=== PATIENT | male | born 1960 | race Caucasian/White ===

== ENCOUNTER → 2018-05-21 12:09 | Outpatient (CLI) | payer OTHER, SELFPAY ==
[2018-05-21 14:53] LABS: ALB/GLOB Ratio 1.1 RATIO (0.9-2.4); AST(SGOT) 16 U/L (15-37); Alanine Aminotransfer ALT/SGPT 30 U/L (16-61); Alkaline Phosphatase 82 U/L (45-117); Anion Gap 9 (5-15); BUN 16 mg/dL (7-18); BUN/Creat Ratio 21.4 RATIO (10-20); CPK Total, Creatine Kinase 96 U/L (39-308); Calcium,Total 9.1 mg/dL (8.5-10.1); Chloride 102 mmol/L (98-107); Cholesterol 130 mg/dL (200); Creatinine, Serum 0.75 mg/dL (0.70-1.30); EST Glomerular Filtration Rate 114 mL/min (>60); Est Glom Filt Rate - Afr Amer 138 mL/min (>60); Ferritin 146 ng/mL (26-388); Globulin 3.7 g/dL (2.2-4.2); Glucose 104 mg/dL (74-106); High Density Lipoprotein 57 mg/dL; Protein, Total 7.7 g/dL (6.4-8.2); Sodium Level 140 mmol/L (136-145); Triglycerides 119 mg/dL; Very Low Density Lipoprotein 24 mg/dL (5-40)
== END ==
PROVIDERS: Family Medicine; Family Provider Family Medicine; PCP Family Medicine; Visit Provider Family Medicine
DX: R25.2 Cramp and spasm (principal); E78.5 Hyperlipidemia, unspecified
CPT/HCPCS: 36415; 80053; 80061; 82550; 82728; 83735

== ENCOUNTER → 2018-07-11 07:26 | Outpatient (CLI) | payer OTHER, SELFPAY ==
[2018-07-11 09:04] LABS: AST(SGOT) 20 U/L (15-37); Alanine Aminotransfer ALT/SGPT 34 U/L (16-61); Albumin, Serum 3.8 g/dL (3.2-5.0); Alkaline Phosphatase 105 U/L (45-117); Bilirubin, Direct 0.17 mg/dL (0.00-0.30); Cholesterol 111 mg/dL (200); Globulin 3.6 g/dL (2.2-4.2); High Density Lipoprotein 50 mg/dL; Protein, Total 7.4 g/dL (6.4-8.2); Triglycerides 53 mg/dL; Very Low Density Lipoprotein 11 mg/dL (5-40)
== END ==
PROVIDERS: Physician Assistant Medical; Family Provider Family Medicine; PCP Family Medicine; Referring Provider Internal Medicine Cardiovascular Disease; Visit Provider Internal Medicine Cardiovascular Disease
DX: E78.5 Hyperlipidemia, unspecified (principal); Z79.899 Other long term (current) drug therapy
CPT/HCPCS: 36415; 80061; 80076

== ENCOUNTER → 2019-07-15 07:05 | Outpatient (CLI) | payer OTHER, SELFPAY ==
[2018-07-17 09:36] VITALS: BMI 25.0
[2019-07-15 08:32] LABS: AST(SGOT) 18 U/L (15-37); Alanine Aminotransfer ALT/SGPT 33 U/L (16-61); Albumin, Serum 3.8 g/dL (3.2-5.0); Alkaline Phosphatase 87 U/L (45-117); Bilirubin, Direct 0.19 mg/dL (0.00-0.30); Cholesterol 113 mg/dL (200); Globulin 3.4 g/dL (2.2-4.2); High Density Lipoprotein 58 mg/dL; Protein, Total 7.2 g/dL (6.4-8.2); Triglycerides 52 mg/dL; Very Low Density Lipoprotein 10 mg/dL (5-40)
== END ==
PROVIDERS: Family Provider Family Medicine; PCP Family Medicine; Referring Provider Physician Assistant Medical; Visit Provider Physician Assistant Medical
DX: E78.00 Pure hypercholesterolemia, unspecified (principal)
CPT/HCPCS: 36415; 80061; 80076

== ENCOUNTER → 2019-07-16 10:26 | Outpatient (CLI) | payer OTHER, SELFPAY ==
[2019-07-16 08:38] VITALS: BMI 24.7
[2019-07-16 11:42] LABS: Absolute Lymphocyte Count 1.34 X10^3/uL (0.83-4.51); Absolute Neutrophil Count 3.3 X10^3/uL (2.0-7.7); Basophil# 0.02 X10^3/uL; Basophil% 0.4 % (0-1); Eosinophil# 0.06 X10^3/uL; Eosinophils% 1.2 % (0-5); Hematocrit 44.3 % (40-54); Hemoglobin 14.4 g/dL (13.0-16.5); Lymphocyte # 1.34 X10^3/ul (4.0); Lymphocyte % 26.7 % (19-41); Mean Corp Hgb Conc 32.5 g/dL (32-36); Mean Corpuscular Hgb 29.3 pg (27.0-32.0); Mean Corpuscular Volume 90.2 fL (80-94); Monocyte# 0.32 X10^3/uL; Monocyte% 6.4 % (0-10); NRBC Flagged by Analyzer 0 % (0-5); Neutrophil # 3.27 X10^3/uL (2.7-7.7); Neutrophil % 65.1 % (47-70); Platelet Count 228 K/mm3 (150-450); RBC Distribution Width CV 12.7 % (11.6-14.6); RBC Distribution Width SD 41.8 fl (35.1-43.9); Red Blood Count 4.91 M/mm3 (4.6-6.2)
[2019-07-16 12:14] LABS: Anion Gap 5 (5-15); BUN 16 mg/dL (7-18); BUN/Creat Ratio 21.9 RATIO (10-20); Calcium,Total 9.1 mg/dL (8.5-10.1); Chloride 105 mmol/L (98-107); Creatinine, Serum 0.73 mg/dL (0.70-1.30); EST Glomerular Filtration Rate 116 mL/min (>60); Est Glom Filt Rate - Afr Amer 141 mL/min (>60); Glucose 114 mg/dL (74-106); PSA,Total - Annual Screen 1.15 ng/mL (0.00-4.00); Potassium 4.3 mmol/L (3.5-5.1); Sodium Level 142 mmol/L (136-145)
== END ==
PROVIDERS: Family Provider Family Medicine; PCP Family Medicine; Referring Provider Internal Medicine Cardiovascular Disease; Visit Provider Internal Medicine Cardiovascular Disease
DX: E78.5 Hyperlipidemia, unspecified (principal); Z95.5 Presence of coronary angioplasty implant and graft
CPT/HCPCS: 36415; 80048; 83036; 84153; 85025; G0103

== ENCOUNTER → 2019-08-20 12:06 | Outpatient (CLI) | payer OTHER, SELFPAY ==
[2019-07-16 08:38] VITALS: BMI 24.7
[2019-08-20 14:59] LABS: Microalbumin,Random Urine 5.1 mg/L (NO RANGE EST.); Microalbumin:Creatinine Ratio 7.3 mg/g CRE (<30 mg/g CRE)
== END ==
PROVIDERS: Family Provider Family Medicine; PCP Family Medicine; Referring Provider Family Medicine; Visit Provider Family Medicine
DX: E11.9 Type 2 diabetes mellitus without complications (principal)
CPT/HCPCS: 82043; 82570

== ENCOUNTER → 2019-11-24 08:10 | Outpatient (CLI) | payer OTHER, SELFPAY ==
[2019-07-16 08:38] VITALS: BMI 24.7
[2019-11-24 10:19] LABS: Absolute Lymphocyte Count 1.53 X10^3/uL (0.83-4.51); Absolute Neutrophil Count 2.3 X10^3/uL (2.0-7.7); Basophil# 0.02 X10^3/uL; Basophil% 0.5 % (0-1); Eosinophil# 0.22 X10^3/uL; Hematocrit 43.7 % (40-54); Hemoglobin 14.2 g/dL (13.0-16.5); Lymphocyte # 1.53 X10^3/ul (4.0); Lymphocyte % 34.7 % (19-41); Mean Corp Hgb Conc 32.5 g/dL (32-36); Mean Corpuscular Hgb 29.6 pg (27.0-32.0); Mean Platelet Vol. 10.2 fl (6.2-12.0); Monocyte# 0.33 X10^3/uL; Monocyte% 7.5 % (0-10); NRBC Flagged by Analyzer 0 % (0-5); Neutrophil % 52.1 % (47-70); Platelet Count 219 K/mm3 (150-450); RBC Distribution Width CV 12.8 % (11.6-14.6); RBC Distribution Width SD 42.9 fl (35.1-43.9); White Blood Count 4.4 K/mm3 (4.4-11.0)
[2019-11-24 10:40] LABS: Microalbumin,Random Urine 10.6 mg/L (NO RANGE EST.); Microalbumin:Creatinine Ratio 6.5 mg/g CRE (<30 mg/g CRE)
[2019-11-24 10:42] LABS: ALB/GLOB Ratio 1.1 RATIO (0.9-2.4); AST(SGOT) 19 U/L (15-37); Alanine Aminotransfer ALT/SGPT 41 U/L (16-61); Albumin, Serum 3.8 g/dL (3.2-5.0); Alkaline Phosphatase 91 U/L (45-117); Anion Gap 5 (5-15); BUN 15 mg/dL (7-18); BUN/Creat Ratio 20.9 RATIO (10-20); Calcium,Total 8.9 mg/dL (8.5-10.1); Chloride 105 mmol/L (98-107); Cholesterol 122 mg/dL (200); Creatinine, Serum 0.72 mg/dL (0.70-1.30); EST Glomerular Filtration Rate 118 mL/min (>60); Est Glom Filt Rate - Afr Amer 143 mL/min (>60); Globulin 3.6 g/dL (2.2-4.2); Glucose 130 mg/dL (74-106); High Density Lipoprotein 59 mg/dL; Potassium 4.1 mmol/L (3.5-5.1); Protein, Total 7.4 g/dL (6.4-8.2); Sodium Level 139 mmol/L (136-145); Triglycerides 39 mg/dL; Very Low Density Lipoprotein 8 mg/dL (5-40)
[2019-11-24 17:43] LABS: Hemoglobin A1c 6.6 % (4.2-6.3)
== END ==
PROVIDERS: PCP Family Medicine; Referring Provider Family Medicine; Visit Provider Family Medicine
DX: I25.10 Atherosclerotic heart disease of native coronary artery without angina pectoris (principal); E11.9 Type 2 diabetes mellitus without complications; E78.5 Hyperlipidemia, unspecified
CPT/HCPCS: 36415; 80053; 80061; 82043; 82570; 83036; 84443; 85025

== ENCOUNTER → 2020-03-21 08:04 | Outpatient (CLI) | payer OTHER, SELFPAY ==
[2019-07-16 08:38] VITALS: BMI 24.7
[2020-03-21 10:42] LABS: Hemoglobin A1c 6.8 % (3.8-5.6)
[2020-03-21 10:47] LABS: ALB/GLOB Ratio 1.1 RATIO (0.9-2.4); AST(SGOT) 16 U/L (15-37); Alanine Aminotransfer ALT/SGPT 29 U/L (16-61); Albumin, Serum 3.7 g/dL (3.2-5.0); Alkaline Phosphatase 78 U/L (45-117); Anion Gap 5 (5-15); BUN 17 mg/dL (7-18); BUN/Creat Ratio 23.5 RATIO (10-20); Calcium,Total 8.7 mg/dL (8.5-10.1); Chloride 107 mmol/L (98-107); Cholesterol 114 mg/dL (200); Creatinine, Serum 0.72 mg/dL (0.70-1.30); EST Glomerular Filtration Rate 117 mL/min (>60); Est Glom Filt Rate - Afr Amer 142 mL/min (>60); Globulin 3.3 g/dL (2.2-4.2); Glucose 132 mg/dL (74-106); High Density Lipoprotein 56 mg/dL; Sodium Level 140 mmol/L (136-145); Triglycerides 34 mg/dL; Very Low Density Lipoprotein 7 mg/dL (5-40)
== END ==
PROVIDERS: PCP Family Medicine; Referring Provider Family Medicine; Visit Provider Family Medicine
DX: E78.5 Hyperlipidemia, unspecified (principal); E11.9 Type 2 diabetes mellitus without complications
CPT/HCPCS: 36415; 80053; 80061; 83036

== ENCOUNTER → 2020-06-07 10:54 | Outpatient (CLI) | payer OTHER, SELFPAY ==
[2019-07-16 08:38] VITALS: BMI 24.7
--- NOTE | 2020-06-07 10:56 | RAD_ITS ---
STUDY: X-RAY - LEFT FOOT CLINICAL: Male, 59 years old. chronic left heel pain TECHNIQUE: 3 view(s) of the foot. COMPARISON: None. FINDINGS: There is a tiny plantar aspect calcaneal spur. Normal visualized subtalar, talonavicular, calcaneocuboid, tarsal and tarsometatarsal articulations. Normal metatarsi. Normal metatarsophalangeal joint of the great toe. Normal tibial and fibular sesamoid bones. Normal interphalangeal joint of the great toe. Normal phalanges of the great toe. Normal second through fifth metatarsophalangeal joints. Normal interphalangeal joints and phalanges of the lesser toes. The soft tissue structures are unremarkable. RAD/Foot min 3 Views IMPRESSION: Tiny plantar aspect calcaneal spur. Electronically Signed: Jamal Crenshaw MD at 16:07 EDT , Service support ,
== END ==
PROVIDERS: PCP Family Medicine; Referring Provider Family Medicine; Visit Provider Family Medicine
DX: M79.672 Pain in left foot (principal)
CPT/HCPCS: 73630

== ENCOUNTER → 2020-07-19 08:06 | Outpatient (CLI) | payer OTHER, SELFPAY ==
[2019-07-16 08:38] VITALS: BMI 24.7
[2020-07-19 08:43] LABS: Absolute Lymphocyte Count 1.95 X10^3/uL (0.83-4.51); Basophil# 0.02 X10^3/uL; Basophil% 0.4 % (0-1); Eosinophil# 0.13 X10^3/uL; Eosinophils% 2.4 % (0-5); Hematocrit 42.2 % (40-54); Hemoglobin 13.7 g/dL (13.0-16.5); Lymphocyte # 1.95 X10^3/ul (4.0); Lymphocyte % 35.6 % (19-41); Mean Corp Hgb Conc 32.5 g/dL (32-36); Mean Corpuscular Hgb 29.5 pg (27.0-32.0); Mean Corpuscular Volume 90.9 fL (80-94); Mean Platelet Vol. 9.6 fl (6.2-12.0); Monocyte# 0.39 X10^3/uL; Monocyte% 7.1 % (0-10); NRBC Flagged by Analyzer 0 % (0-5); Neutrophil # 2.97 X10^3/uL (2.7-7.7); Neutrophil % 54.3 % (47-70); Platelet Count 231 K/mm3 (150-450); RBC Distribution Width CV 12.6 % (11.6-14.6); RBC Distribution Width SD 41.6 fl (35.1-43.9); Red Blood Count 4.64 M/mm3 (4.6-6.2); White Blood Count 5.5 K/mm3 (4.4-11.0)
[2020-07-19 08:53] LABS: Hemoglobin A1c 6.5 % (3.8-5.6)
[2020-07-19 08:58] LABS: ALB/GLOB Ratio 1.1 RATIO (0.9-2.4); AST(SGOT) 20 U/L (15-37); Alanine Aminotransfer ALT/SGPT 46 U/L (16-61); Albumin, Serum 3.7 g/dL (3.2-5.0); Alkaline Phosphatase 101 U/L (45-117); Anion Gap 2 (5-15); BUN 17 mg/dL (7-18); BUN/Creat Ratio 23.7 RATIO (10-20); Bilirubin, Direct 0.17 mg/dL (0.00-0.30); Calcium,Total 8.9 mg/dL (8.5-10.1); Chloride 107 mmol/L (98-107); Cholesterol 109 mg/dL (200); Creatinine, Serum 0.72 mg/dL (0.70-1.30); EST Glomerular Filtration Rate 118 mL/min (>60); Est Glom Filt Rate - Afr Amer 143 mL/min (>60); Globulin 3.4 g/dL (2.2-4.2); Glucose 136 mg/dL (74-106); High Density Lipoprotein 55 mg/dL; Potassium 4.4 mmol/L (3.5-5.1); Protein, Total 7.1 g/dL (6.4-8.2); Sodium Level 141 mmol/L (136-145); Triglycerides 32 mg/dL; Very Low Density Lipoprotein 6 mg/dL (5-40)
[2020-07-19 09:07] LABS: Microalbumin,Random Urine 5.7 mg/L (NO RANGE EST.); Microalbumin:Creatinine Ratio 5.2 mg/g CRE (<30 mg/g CRE)
== END ==
PROVIDERS: PCP Family Medicine; Referring Provider Physician Assistant Medical; Visit Provider Physician Assistant Medical
DX: E11.9 Type 2 diabetes mellitus without complications (principal); E78.5 Hyperlipidemia, unspecified; I25.10 Atherosclerotic heart disease of native coronary artery without angina pectoris
CPT/HCPCS: 36415; 80053; 80061; 82043; 82248; 82570; 83036; 85025

== ENCOUNTER → 2020-08-04 06:03 | Outpatient (CLI) | payer OTHER, SELFPAY ==
[2020-07-21 09:04] VITALS: BMI 23.5
--- NOTE | 2020-08-04 17:28 | STRESSREP_ITS ---
Stress Test Report Exercise myocardial perfusion stress test. 59-year-old man with a history of premature coronary disease angioplasty and stenting of the left anterior descending artery. Stress protocol: Resting EKG demonstrates normal sinus rhythm with a rate of 66 bpm normal intervals are noted resting blood pressure is 118/70 mmHg. The patient exerci sed according to the regular Jose protocol for a total duration of 13 minutes. Patient completed 1 minute into stage V of the Joes protocol. The maximum heart rate attained was 179 bpm which was 112% of max impacted heart rate the maximum workload was 15.3 metabolic equivalents. At rest there were no ST or T wave changes noted to suggest ischemia peak exercise upsloping ST changes were noted we did not meet the criteria for ischemia. No clinical angina was noted. The peak blood pressure was 160/76 mmHg. Myocardial perfusion protocol. 11.8 mCi of technetium 99m sestamibi was injected at rest. The patient exercised according to regular Jose protocol at peak exercise 33.6 mCi of technetium 99m sestamibi was injected stress images were obtained stress and rest images were reconstructed and compared in the short axis vertical long horizontal long axis. Gated images were also obtained Perfusion SPECT analysis: Review of the stress images demonstrate normal uptake of tracer noted in all areas of the myocardium the resting images similarly demonstrate normal uptake of tracer noted in all areas of the myocardium. No areas of reversibility are noted suggest ischemia no previous infarct is noted. Gated SPECT analysis: The gated ejection fraction is 61%. Conclusion: Normal exercise myocardial perfusion stress test at a high workload. Preserved ejection fraction.
== END ==
PROVIDERS: PCP Family Medicine; Referring Provider Internal Medicine Cardiovascular Disease; Visit Provider Internal Medicine Cardiovascular Disease
DX: I25.10 Atherosclerotic heart disease of native coronary artery without angina pectoris (principal); Z95.5 Presence of coronary angioplasty implant and graft
CPT/HCPCS: 78452; 93017; A9500; A4216

== ENCOUNTER → 2021-06-28 15:18 | Outpatient (CLI) | payer OTHER, SELFPAY ==
--- NOTE | 2021-06-28 15:20 | RAD_ITS ---
STUDY: X-RAY - LEFT WRIST REASON FOR EXAM: Male, 60 years old. PAIN TECHNIQUE: 3 view(s) of the wrist were obtained. COMPARISON: None. FINDINGS: Normal visualized distal radius and ulna. Normal radiocarpal articulation. Normal distal radioulnar articulation. Normal carpal bones. Normal carpal articulations. Normal carpometacarpal articulation of the thumb. Normal second through fifth carpometacarpal articulations. Normal visualized metacarpal bones. The soft tissue structures are unremarkable. RAD/Wrist min 3 Views IMPRESSION: Normal x-ray examination of the wrist. Electronically Signed: Mario Del Real DO at 17:28 EDT Tel [phone], Service support ,
== END ==
PROVIDERS: PCP Family Medicine; Referring Provider Family Medicine; Visit Provider Family Medicine
DX: M25.532 Pain in left wrist (principal)
CPT/HCPCS: 73110

== ENCOUNTER → 2021-07-12 07:06 | Outpatient (CLI) | payer OTHER, SELFPAY ==
[2021-07-12 07:49] LABS: Absolute Lymphocyte Count 1.75 X10^3/uL (0.83-4.51); Absolute Neutrophil Count 2.2 X10^3/uL (2.0-7.7); Basophil# 0.01 X10^3/uL; Basophil% 0.2 % (0-1); Eosinophil# 0.09 X10^3/uL; Eosinophils% 2.1 % (0-5); Hematocrit 42.5 % (40-54); Hemoglobin 14.4 g/dL (13.0-16.5); Lymphocyte # 1.75 X10^3/ul (0.83-4.51); Lymphocyte % 40.4 % (19-41); Mean Corp Hgb Conc 33.9 g/dL (32-36); Mean Corpuscular Hgb 30.4 pg (27.0-32.0); Mean Corpuscular Volume 89.7 fL (80-94); Mean Platelet Vol. 9.4 fl (6.2-12.0); Monocyte# 0.31 X10^3/uL; Monocyte% 7.2 % (0-10); NRBC Flagged by Analyzer 0 % (0-5); Neutrophil # 2.16 X10^3/uL (2.7-7.7); Neutrophil % 49.9 % (47-70); Platelet Count 214 K/mm3 (150-450); RBC Distribution Width CV 12.7 % (11.6-14.6); RBC Distribution Width SD 42.1 fl (35.1-43.9); Red Blood Count 4.74 M/mm3 (4.6-6.2); White Blood Count 4.3 K/mm3 (4.4-11.0)
[2021-07-12 08:12] LABS: Microalbumin,Random Urine 5.9 mg/L (NO RANGE EST.); Microalbumin:Creatinine Ratio 5.6 mg/g CRE (<30 mg/g CRE)
[2021-07-12 08:16] LABS: AST(SGOT) 22 U/L (15-37); Alanine Aminotransfer ALT/SGPT 37 U/L (16-61); Albumin, Serum 3.6 g/dL (3.2-5.0); Alkaline Phosphatase 91 U/L (45-117); Anion Gap 5 (5-15); BUN 16 mg/dL (7-18); BUN/Creat Ratio 22.3 RATIO (10-20); Calcium,Total 8.8 mg/dL (8.5-10.1); Chloride 106 mmol/L (98-107); Cholesterol 108 mg/dL (200); Creatinine, Serum 0.72 mg/dL (0.70-1.30); EST Glomerular Filtration Rate 118 mL/min (>60); Est Glom Filt Rate - Afr Amer 143 mL/min (>60); Globulin 3.5 g/dL (2.2-4.2); Glucose 143 mg/dL (74-106); High Density Lipoprotein 60 mg/dL; Protein, Total 7.1 g/dL (6.4-8.2); Sodium Level 139 mmol/L (136-145); Triglycerides 49 mg/dL; Very Low Density Lipoprotein 10 mg/dL (5-40)
[2021-07-12 08:24] LABS: Hemoglobin A1c 6.7 % (3.8-5.6)
== END ==
PROVIDERS: PCP Family Medicine; Referring Provider Family Medicine; Visit Provider Family Medicine
DX: E11.9 Type 2 diabetes mellitus without complications (principal); I25.10 Atherosclerotic heart disease of native coronary artery without angina pectoris
CPT/HCPCS: 36415; 80053; 80061; 82043; 82570; 83036; 85025

== ENCOUNTER 2021-11-30 07:09 | Outpatient (CLI) | payer OTHER, SELFPAY ==
[2021-11-30 08:00] LABS: Absolute Lymphocyte Count 1.75 X10^3/uL (0.83-4.51); Basophil# 0.02 X10^3/uL; Basophil% 0.5 % (0-1); Eosinophil# 0.09 X10^3/uL; Eosinophils% 2.1 % (0-5); Hematocrit 44.2 % (40-54); Hemoglobin 15.5 g/dL (13.0-16.5); Lymphocyte # 1.75 X10^3/ul (0.83-4.51); Mean Corp Hgb Conc 35.1 g/dL (32-36); Mean Corpuscular Hgb 31.3 pg (27.0-32.0); Mean Corpuscular Volume 89.3 fL (80-94); Mean Platelet Vol. 9.7 fl (6.2-12.0); Monocyte% 9.4 % (0-10); NRBC Flagged by Analyzer 0 % (0-5); Neutrophil % 46.8 % (47-70); Platelet Count 225 K/mm3 (150-450); RBC Distribution Width CV 12.8 % (11.6-14.6); RBC Distribution Width SD 42.2 fl (35.1-43.9); Red Blood Count 4.95 M/mm3 (4.6-6.2); White Blood Count 4.3 K/mm3 (4.4-11.0)
[2021-11-30 08:30] LABS: Hemoglobin A1c 6.3 % (3.8-5.6)
[2021-11-30 08:34] LABS: ALB/GLOB Ratio 1.1 RATIO (0.9-2.4); AST(SGOT) 20 U/L (15-37); Alanine Aminotransfer ALT/SGPT 32 U/L (16-61); Albumin, Serum 3.8 g/dL (3.2-5.0); Alkaline Phosphatase 81 U/L (45-117); Anion Gap 5 (5-15); BUN 16 mg/dL (7-18); BUN/Creat Ratio 23.3 RATIO (10-20); Calcium,Total 9.2 mg/dL (8.5-10.1); Chloride 107 mmol/L (98-107); Cholesterol 127 mg/dL (200); Creatinine, Serum 0.69 mg/dL (0.70-1.30); EST Glomerular Filtration Rate 124 mL/min (>60); Est Glom Filt Rate - Afr Amer 150 mL/min (>60); Globulin 3.4 g/dL (2.2-4.2); Glucose 121 mg/dL (74-106); High Density Lipoprotein 63 mg/dL; Potassium 3.8 mmol/L (3.5-5.1); Protein, Total 7.2 g/dL (6.4-8.2); Sodium Level 140 mmol/L (136-145); Triglycerides 46 mg/dL; Very Low Density Lipoprotein 9 mg/dL (5-40)
== END 2021-11-30 23:59 | disposition home or self-care (01) ==
LOC: LAB 07:10
PROVIDERS: PCP Family Medicine; Visit Provider Nurse Practitioner Family
DX: I25.10 Atherosclerotic heart disease of native coronary artery without angina pectoris (principal); E11.9 Type 2 diabetes mellitus without complications
CPT/HCPCS: 36415; 80053; 80061; 83036; 85025

== ENCOUNTER → 2022-09-06 | Outpatient (CLI) | payer OTHER, SELFPAY ==
[2022-09-06 08:21] LABS: AST(SGOT) 17 U/L (15-37); Alanine Aminotransfer ALT/SGPT 35 U/L (16-61); Albumin, Serum 3.8 g/dL (3.2-5.0); Alkaline Phosphatase 97 U/L (45-117); Bilirubin, Direct 0.18 mg/dL (0.00-0.30); Cholesterol 131 mg/dL (200); Globulin 3.6 g/dL (2.2-4.2); High Density Lipoprotein 69 mg/dL; Protein, Total 7.4 g/dL (6.4-8.2); Triglycerides 52 mg/dL; Very Low Density Lipoprotein 10 mg/dL (5-40)
== END | disposition home or self-care (01) ==
LOC: LAB 07:23
PROVIDERS: PCP Family Medicine; Referring Provider Nurse Practitioner Family; Visit Provider Nurse Practitioner Family
DX: E78.00 Pure hypercholesterolemia, unspecified (principal)
CPT/HCPCS: 36415; 80061; 80076

== ENCOUNTER → 2023-10-16 | Outpatient (CLI) | payer MEDICARE, OTHER, SELFPAY ==
--- OUTSIDE RECORDS SUMMARY | 2023-10-16 07:07 | XMS RPT_ITS | CCD ---
Author Name Unknown Address [address] [place] [address] Organization [facility] Care Team Providers Care Commissary Assistant Name Role Phone Elba Rivas Unavailable Elba Rivas Unavailable Medications Completed/Discontinued Medications Medication Drug Class(es) Dates Sig (Normalized) Sig (Original) aspirin 81 mg oral tablet (4 sources) Nonsteroidal Anti-inflammatory Drug Start: 03-17-2014 take 1 tablet by mouth once daily ASPIRIN 81 MG TABS One tablet by mouth daily ASPIRIN [id number] Bucky Slade MD Problems Active Problems Problem Classification Problem Date Documented Date Episodic/Chronic Cardiac dysrhythmias (2 sources) Ventricular premature beats; Translations: [Ventricular premature depolarization] Onset: 03-30-2014 03-30-2014 Chronic Coronary atherosclerosis and other heart disease (4 sources) Atherosclerotic heart disease of zuni coronary artery without angina pectoris; Translations: [Atherosclerotic heart disease of zuni coronary artery without angina pectoris] Onset: 03-23-2014 03-23-2014 Chronic Disorders of lipid metabolism (2 sources) Hyperlipidemia; Translations: [Hyperlipidemia, unspecified] Onset: 03-24-2014 03-24-2014 Chronic Unclassified (6 sources) Long-term drug therapy; Translations: [Long-term (current) use of other medications] Onset: 03-24-2014 Resolved: 05-25-2015 03-24-2014 Unclassified (2 sources) Placement of stent in coronary artery ; Translations: [Presence of coronary angioplasty implant and graft] Onset: 03-23-2014 07-12-2016 Past or Other Problems Problem Classification Problem Date Documented Da te Episodic/Chronic Cardiac dysrhythmias (4 sources) Palpitations; Translations: [Palpitations] Onset: 03-30-2014 Resolved: 06-07-2015 03-30-2014 Episodic Coronary atherosclerosis and other heart disease (2 sources) Coronary angioplasty status; Translations: [Coronary angioplasty status] Onset: 03-23-2014 03-23-2014 Episodic Nonspecific chest pain (4 sources) Chest discomfort; Translations: [Other chest pain] Onset: 03-17-2014 Resolved: 06-07-2015 06-07-2015 Episodic Unclassified (4 sources) Cardiovascular stress test abnormal; Translations: [Abnormal result of other cardiovascular function study] Onset: 03-17-2014 Resolved: 06-07-2015 03-17-2014 Episodic Unclassified (2 sources) Body mass index (BMI) 26.0-26.9, adult; Translations: [Body mass index (BMI) 26.0-26.9, adult] Onset: 04-05-2014 04-05-2014 Episodic Results Test Name Value Interpretation Reference Range Facil ity Vital Signs Date Time Vital Sign Value Performing Clinician Basilia wilson 07-16-2017 14:01-0500 BMI (Body Mass Index) 25.54 kg/m2 Elba [facility] Work Phone: 07-16-2017 14:01-0500 Body Temperature 20 [degF] Elba [facility] Work Phone: 07-16-2017 14:01-0500 BP Diastolic 40 mm[Hg] Elba [facility] Work Phone: 07-16-2017 14:01-0500 BP Systolic 90 mm[Hg] [facility] Work Phone: 07-16-2017 14:01-0500 Height 177.8 cm Elba [facility] Work Phone: 07-16-2017 14:01-0500 Pulse (Heart Rate) 68 /min Elba [facility] Work Phone: 07-16-2017 14:01-0500 Respiratory Rate 20 /min Elba [facility] Work Phone: 07-16-2017 14:01-0500 Weight 80.74 kg Elba [facility] Work Phone: 07-12-2016 13:19-0500 BSA (Body Surface Area) 1.97 m2 Elba Rivas [facility] Work Phone: Procedures Date Procedure Procedure Detail Performing Clinician Start: 07-16-2017 End: 07-16-2017 KEYANNA Slade MD Start: 07-16-2017 End: 07-16-2017 Follow Up Appt 1 year Bucky Slade MD Start: 06-07-2017 End: 06-08-2017 *Hepatic Function Panel Sandra madden PA-C Work Phone: Start: 06-07-2017 End: 06-08-2017 Lipid 1996 panel - Serum or Plasma Sandra Donohue PA-C Work Phone: Start: 12-06-2016 End: 12-06-2016 *Hepatic Function Panel Renate Vasquez Start: 12-06-2016 End: 12-06-2016 Lipid Matthew panel - Serum or Plasma Bucky Slade MD Start: 07-12-2016 End: 07-12-2016 KEYANNA Slade MD Start: 07-12-2016 End: 07-12-2016 Follow Up Appt 1 year Bucky Slade MD Start: 05-25-2016 End: 06-08-2016 *Hepatic Function Panel Renate Vasquez Start: 05-25-2016 End: 06-08-2016 Lipid Matthew panel - Serum or Plasma Bucky Slade MD Start: 11-23-2015 End: 11-23-2015 *Hepatic Function Panel Renate Vasquez Start: 11-23-2015 End: 11-23-2015 Lipid Matthew panel - Serum or Plasma Bucky Slade MD Start: 06-07-2015 End: 06-07-2015 RAGMAN Bucky Slade MD Start: 06-07-2015 End: 06-08-2015 Documentation of current medications Bucky Slade MD Start: 06-07-2015 End: 06-07-2015 Follow Up Appt 1 year Bucky Slade MD Start: 06-07-2015 End: 06-27-2015 Nuclear stress test -exercise Bucky Slade MD Start: 05-23-2015 End: 05-24-2015 *Hepatic Function Panel Renate Vasquez Start: 05-23-2015 End: 05-24-2015 Lipid 1996 panel - Serum or Plasma Bucky Slade MD Start: 02-26-2015 End: 02-28-2015 *Hepatic Function Panel Sandra madden PA-C Work Phone: Start: 11-25-2014 End: 11-25-2014 RAGMAN Sandra Donohue PA-C Work Phone: Start: 11-25-2014 End: 11-26-2014 Documentation of current medications Sandra Donohue PA-C Work Phone: Start: 11-25-2014 End: 11-25-2014 Follow Up Appt 6 months Sandra madden PA-C Work Phone: Start: 09-02-2014 End: 11-19-2014 *Hepatic Function Panel Renate Vasquez Start: 09-02-2014 End: 11-19-2014 Lipid 1996 panel - Serum or Plasma Bucky Slade MD Start: 05-21-2014 End: 05-21-2014 Follow Up Appt 6 months Renate Vasquez Start: 05-21-2014 End: 05-21-2014 MMM Bucky Slade MD Start: 04-12-2014 End: 05-17-2014 Magnesium [Mass/volume] in Serum or Plasma Sandra Donohue PA-C Work Phone: Start: 04-05-2014 End: 04-12-2014 *Hepatic Function Panel Sandra madden PA-C Work Phone: Start: 04-05-2014 End: 04-05-2014 Cardiac Rehab Sandra Donohue PA-C Work Phone: Start: 04-05-2014 End: 04-05-2014 RAGMAN Sandra Donohue PA-C Work Phone: Start: 04-05-2014 End: 04-05-2014 Follow Up Appt Other Sandra calle PA-C Work Phone: Start: 04-05-2014 End: 04-12-2014 Lipid 1996 panel - Serum or Plasma Sandra Donohue PA-C Work Phone: Start: 03-30-2014 End: 03-30-2014 *BMP Sandra Donohue PA-C Work Phone: Start: 03-30-2014 End: 05-21-2014 24 hour holter monitor Sandra cheng PA-C Work Phone: Start: 03-30-2014 End: 03-30-2014 Magnesium [Mass/volume] in Serum or Plasma Sandra Donohue PA-C Work Phone: Start: 03-17-2014 End: 03-17-2014 *BMP Bucky Slade MD Start: 03-17-2014 End: 03-18-2014 *Hepatic Function Panel Renate Vasquez Start: 03-17-2014 End: 03-17-2014 CBC W Auto Differential panel - Blood Bucky Slade MD Start: 03-17-2014 End: 03-19-2014 Chest x-ray Bucky Slade MD Start: 03-17-2014 End: 03-17-2014 RAGMAN Bucky Slade MD Start: 03-17-2014 End: 03-17-2014 Follow Up Appt 2 months Renate Vasquez Start: 03-17-2014 End: 03-17-2014 INR in Platelet poor plasma by Coagulation assay Bucky Slade MD Start: 03-17-2014 End: 03-19-2014 Left Heart Cath Bucky Slade MD Start: 03-17-2014 End: 03-18-2014 Lipid 1996 panel - Serum or Plasma Bucky Slade MD Plan of Treatment Date Care Activity Detail Author Start: 07-17-2018 End: 07-17-2018 Appointment Appointment [facility] Work Phone: Start: 12-09-2017 End: 06-10-2017 *Hepatic Function Panel *Hepatic Function Panel [facility] Work Phone: Start: 12-09-2017 End: 06-10-2017 Lipid panel [AGGREGATE] *Lipid Profile CC PCP [facility] Work Phone: Start: 07-16-2017 End: 07-16-2017 RAGMAN KEYANNA [facility] Work Phone: Start: 07-16-2017 End: 07-16-2017 Follow Up Appt 1 year Follow Up Appt 1 year [facility] Work Phone: Start: 06-07-2017 End: 06-08-2017 *Hepatic Function Panel *Hepatic Function Panel [facility] Work Phone: Start: 06-07-2017 End: 06-08-2017 Lipid panel [AGGREGATE] *Lipid Profile CC PCP [facility] Work Phone: Start: 12-06-2016 End: 12-06-2016 *Hepatic Function Panel *Hepatic Function Panel [facility] Work Phone: Start: 12-06-2016 End: 12-06-2016 Lipid panel [AGGREGATE] *Lipid Profile CC PCP [facility] Work Phone: Start: 07-12-2016 End: 07-12-2016 RAGMAN RAGMAN [facility] Work Phone: Start: 07-12-2016 End: 07-12-2016 Follow Up Appt 1 year Follow Up Appt 1 year [facility] Work Phone: Start: 05-25-2016 End: 06-08-2016 *Hepatic Function Panel *Hepatic Function Panel [facility] Work Phone: Start: 05-25-2016 End: 06-08-2016 Lipid panel [AGGREGATE] *Lipid Profile CC PCP [facility] Work Phone: Start: 11-23-2015 End: 11-23-2015 *Hepatic Function Panel *Hepatic Function Panel [facility] Work Phone: Start: 11-23-2015 End: 11-23-2015 Lipid panel [AGGREGATE] *Lipid Profile CC PCP [facility] Work Phone: Start: 06-07-2015 End: 06-07-2015 RAGMAN RAGMAN [facility] Work Phone: Start: 06-07-2015 End: 06-07-2015 Follow Up Appt 1 year Follow Up Appt 1 year [facility] Work Phone: Start: 06-07-2015 End: 06-07-2015 Nuclear stress test -exercise Nuclear stress test -exercise [facility] Work Phone: Start: 05-23-2015 End: 05-24-2015 *Hepatic Function Panel *Hepatic Function Panel [facility] Work Phone: Start: 05-23-2015 End: 05-24-2015 Lipid panel [AGGREGATE] *Lipid Profile CC PCP [facility] Work Phone: Start: 02-26-2015 End: 02-28-2015 *Hepatic Function Panel *Hepatic Function Panel [facility] Work Phone: Start: 11-25-2014 End: 11-25-2014 RAGMAN RAGMAN [facility] Work Phone: Start: 11-25-2014 End: 11-25-2014 Follow Up Appt 6 months Follow Up Appt 6 months [facility] Work Phone: Start: 09-02-2014 End: 11-19-2014 *Hepatic Function Panel *Hepatic Function Panel [facility] Work Phone: Start: 09-02-2014 End: 11-19-2014 Lipid panel [AGGREGATE] *Lipid Profile CC PCP [facility] Work Phone: Start: 05-21-2014 End: 05-21-2014 Follow Up Appt 6 months Follow Up Appt 6 months [facility] Work Phone: Start: 05-21-2014 End: 05-21-2014 MMM MMM [facility] Work Phone: Start: 04-12-2014 End: 05-17-2014 Magnesium *Magnesium [facility] Work Phone: Start: 04-05-2014 End: 04-12-2014 *Hepatic Function Panel *Hepatic Function Panel [facility] Work Phone: Start: 04-05-2014 End: 04-05-2014 Cardiac Rehab Cardiac Rehab [facility] Work Phone: Start: 04-05-2014 End: 04-05-2014 RAGMAN RAGMAN [facility] Work Phone: Start: 04-05-2014 End: 04-05-2014 Follow Up Appt Other Follow Up Appt Other [facility] Work Phone: Start: 04-05-2014 End: 04-12-2014 Lipid panel [AGGREGATE] *Lipid Profile CC PCP [facility] Work Phone: Start: 03-30-2014 End: 03-30-2014 *BMP *BMP [facility] Work Phone: Start: 03-30-2014 End: 05-21-2014 24 hour holter monitor 24 hour holter monitor [facility] Work Phone: Start: 03-30-2014 End: 03-30-2014 Magnesium *Magnesium [facility] Work Phone: Start: 03-17-2014 End: 03-17-2014 *BMP *BMP [facility] Work Phone: Start: 03-17-2014 End: 03-18-2014 *Hepatic Function Panel *Hepatic Function Panel [facility] Work Phone: Start: 03-17-2014 End: 03-17-2014 CBC W Auto Differential panel - Blood *CBC without Diff [facility] Work Phone: Start: 03-17-2014 End: 03-19-2014 Chest x-ray X-Ray, Chest, PA & Lateral [facility] Work Phone: Start: 03-17-2014 End: 03-17-2014 RAGMAN RAGMAN [facility] Work Phone: Start: 03-17-2014 End: 03-17-2014 Follow Up Appt 2 months Follow Up Appt 2 months [facility] Work Phone: Start: 03-17-2014 End: 03-17-2014 INR Coag RelTime (PPP) *PT/INR [facility] Work Phone: Start: 03-17-2014 End: 03-17-2014 Left Heart Cath Left Heart Cath [facility] Work Phone: Start: 03-17-2014 End: 03-18-2014 Lipid panel [AGGREGATE] *Lipid Profile CC PCP [facility] Work Phone: Patient Education [facility] Work Phone: Additional Source Comments FOR RECORDS PERTAINING TO PATIENTS WHO ARE OR HAVE BEEN ENROLLED IN A CHEMICAL DEPENDENCY/SUBSTANCEABUSE PROGRAM, SOME INFORMATION MAY BE OMITTED. This clinical summary was aggregated from multiple sources. Caution should be exercised in using it in the provision of clinical care. This summary normalizes information from multiple sources, and as a consequence, information in this document may materially change the coding, format and clinical context of patient data. In addition, data may be omitted in some cases. CLINICAL DECISIONS SHOULD BE BASED ON THE PRIMARY CLINICAL RECORDS. [facility]. provides no warranty or guarantee of the accuracy or completeness of information in this document.
[2023-10-16 09:29] LABS: AST(SGOT) 18 U/L (15-37); Alanine Aminotransfer ALT/SGPT 24 U/L (16-61); Albumin, Serum 3.8 g/dL (3.2-5.0); Alkaline Phosphatase 96 U/L (45-117); Bilirubin, Direct 0.17 mg/dL (0.00-0.30); Cholesterol 132 mg/dL (200); Globulin 3.5 g/dL (2.2-4.2); High Density Lipoprotein 63 mg/dL; Protein, Total 7.3 g/dL (6.4-8.2); Triglycerides 52 mg/dL; Very Low Density Lipoprotein 10 mg/dL (5-40)
== END | disposition home or self-care (01) ==
LOC: LAB 07:04
PROVIDERS: PCP Family Medicine; Referring Provider Nurse Practitioner Family; Visit Provider Nurse Practitioner Family
DX: E78.5 Hyperlipidemia, unspecified (principal)
CPT/HCPCS: 36415; 80061; 80076

== ENCOUNTER → 2025-01-05 | Outpatient (CLI) | payer MEDICARE, OTHER, SELFPAY ==
[2025-01-05 08:58] LABS: AST(SGOT) 27 U/L (<=37); Alanine Aminotransfer ALT/SGPT 21 U/L (<=46); Albumin, Serum 4.2 g/dL (3.4-4.8); Alkaline Phosphatase 84 U/L (40-129); Bilirubin, Direct 0.19 mg/dL (0.00-0.30); Cholesterol 180 mg/dL (<=200); High Density Lipoprotein 58 mg/dL; Low Density Lipoprotein Calc. 112 mg/dL; Protein, Total 7.2 g/dL (5.9-8.4); Total Bilirubin 0.43 mg/dL (0.00-1.30); Triglycerides 50 mg/dL; Very Low Density Lipoprotein 10 mg/dL (5-40)
== END | disposition home or self-care (01) ==
LOC: LAB 07:10
PROVIDERS: PCP Family Medicine; Referring Provider Nurse Practitioner Gerontology; Visit Provider Nurse Practitioner Gerontology
DX: E78.00 Pure hypercholesterolemia, unspecified (principal)
CPT/HCPCS: 36415; 80061; 80076

== ENCOUNTER → 2025-01-15 | Outpatient (CLI) | payer MEDICARE, OTHER, SELFPAY ==
--- NOTE | 2025-01-15 15:17 | STRESSREP_ITS ---
Stress Test Report Exercise myocardial perfusion stress test. 64-year-old man with a history of chest pain Stress protocol: Resting EKG demonstrates normal sinus rhythm with a rate of 61 bpm resting blood pressure is 140/70 mmHg. The patient exercised according to the regular Jose protocol for a total duration of 13 minutes and 50 seconds attaining a maximum heart rate of 176 bpm which was 114 of maximum predicted heart rate; the maximum workload was 17.2 metabolic equivalents. At rest there were no ST or T wave changes noted to suggest ischemia and at peak exercise upsloping ST changes only were noted which did not meet the criteria for ischemia. No clinical angina was noted the test was terminated due to the target heart rate being achieved/fati zahida. The peak blood pressure was 170/90 mmHg. Rate-pressure product was 29,000. Myocardial perfusion protocol. 11.9 mCi of technetium 99m sestamibi was injected at rest. The patient exercised according to regular Jose protocol for total duration of 13 minutes and 50 secs and at peak exercise 34.7 mCi of technetium 99m sestamibi was injected stress images were obtained stress and rest images were reconstructed in comparing the short axis vertical long and horizontal long axis. Gated images were also obtained. Perfusion SPECT analysis: Review of the stress images demonstrate normal uptake of tracer noted in all areas of the myocardium. The resting images similarly demonstrate normal uptake of tracer noted in all areas of the myocardium. No areas of reversibility are noted to suggest ischemia no previous infarct was noted. Gated SPECT analysis: The gated ejection fraction is 58%. Conclusion: Normal exercise myocardial perfusion stress test at a high workload Preserved ejection fraction.
== END | disposition home or self-care (01) ==
LOC: CVS 05:58
PROVIDERS: PCP Family Medicine; Referring Provider Internal Medicine Cardiovascular Disease; Visit Provider Internal Medicine Cardiovascular Disease
DX: I25.10 Atherosclerotic heart disease of native coronary artery without angina pectoris (principal); Z95.5 Presence of coronary angioplasty implant and graft
CPT/HCPCS: 78452; 93017; A9500; A4216

== ENCOUNTER → 2025-07-08 | Outpatient (CLI) | payer MEDICARE, OTHER, SELFPAY ==
[2025-07-08 13:33] LABS: AST(SGOT) 22 U/L (<=37); Alanine Aminotransfer ALT/SGPT 24 U/L (<=46); Albumin, Serum 4.2 g/dL (3.4-4.8); Alkaline Phosphatase 79 U/L (40-129); Bilirubin, Direct 0.20 mg/dL (0.00-0.30); Cholesterol 181 mg/dL (<=200); Globulin 2.8 g/dL (2.2-4.2); Low Density Lipoprotein Calc. 107 mg/dL; PSA,Total - Annual Screen 1.24 ng/mL (0.02-4.00); Triglycerides 36 mg/dL; Very Low Density Lipoprotein 7 mg/dL (5-40); cholesterol:hdl ratio screen 2.73
== END | disposition home or self-care (01) ==
LOC: MFPLAB 09:58
PROVIDERS: Nurse Practitioner Gerontology; PCP Family Medicine
DX: Z12.5 Encounter for screening for malignant neoplasm of prostate (principal); E78.2 Mixed hyperlipidemia
CPT/HCPCS: 36415; 80061; 80076; 84153; G0103